=== PATIENT | female | born 1970 | race African-American/Black ===

== ENCOUNTER 2020-03-22 17:42 | Emergency (ER) | payer SELFPAY ==
[~2020-03-22] VITALS: Ht 160 cm; Wt 59.0 kg
[2020-03-22 17:58] VITALS: BP 143/72
[2020-03-22] MEDS ORDERED: ACETAMINOPHEN 325MG TABLET PO STA (19:15)
[2020-03-22] MEDS ORDERED: AMOXICILLIN/POTASSIUM CLAVULANATE 875/125MG TAB PO ONE (19:30)
[2020-03-22] MEDS ORDERED: TETANUS, DIPHTHERIA, PERTUSSIS VAC/PF 0.5ML (>7YR OLD) IM ONE (19:30)
[2020-03-22] MEDS ORDERED: BACITRACIN ZINC OINT UDPKT TOP NR (20:30)
== END 2020-03-22 20:51 | disposition home or self-care (01) ==
LOC: ER 17:59
DX: S61.250A Open bite of right index finger without damage to nail, initial encounter (principal); S20.211A Contusion of right front wall of thorax, initial encounter; Y08.89XA Assault by other specified means, initial encounter; Y93.89 Activity, other specified; Y92.89 Other specified places as the place of occurrence of the external cause; Y99.8 Other external cause status
CPT/HCPCS: 12001; 71045; 73140; 90471; 90715; 99284

== ENCOUNTER 2020-03-27 19:29 | Emergency (ER) | payer SELFPAY ==
[~2020-03-27] VITALS: Ht 170.2 cm; Wt 56.5 kg
[2020-03-27] MEDS ORDERED: KETOROLAC 30MG/ML VIAL IM ONE (20:30)
[2020-03-27 20:49] VITALS: BP 122/70
== END 2020-03-27 20:50 | disposition home or self-care (01) ==
LOC: ER 19:29
DX: Z48.00 Encounter for change or removal of nonsurgical wound dressing (principal); M79.644 Pain in right finger(s)
CPT/HCPCS: 96372; 99283; J1885